=== PATIENT | female | born 2000 | race Caucasian/White ===

== ENCOUNTER 2024-10-17 21:06 | Emergency (ER) | payer MEDICAID ==
[~2024-10-17] VITALS: Ht 167.6 cm; Wt 127.3 kg
[2024-10-17] MEDS ORDERED: Ondansetron 4 MG/2 ML VIAL IV ONE (21:45)
[2024-10-17] MEDS ORDERED: NS 1,000 ML IV SCH (21:45)
[2024-10-17 22:00] LABS: HEMATOCRIT 47.8 % (37.0-47.0); HEMOGLOBIN 15.8 g/dL (12.5-16.0); MEAN CELL VOLUME 86 fl (78-100); MEAN CORPUSCULAR HEMOGLOBIN 28 pg (27-31); MEAN CORPUSCULAR HGB CONC 33 g/dL (33-37); MEAN PLATELET VOLUME 9.8 fl (7.4-10.4); PLATELET COUNT 223 K/mm3 (130-400); RED BLOOD COUNT 5.57 M/mm3 (4.10-5.30); RED CELL DISTRIBUTION WIDTH 12.3 % (11.5-14.5); WHITE BLOOD COUNT 6.5 K/mm3 (4.8-10.8)
[2024-10-17 22:09] LABS: ALBUMIN 4.5 g/dL (3.5-5.0)
[2024-10-17 22:11] LABS: CALCIUM 9.9 mg/dL (8.3-10.5)
[2024-10-17 22:12] LABS: TOTAL PROTEIN 9.2 g/dL (6.4-8.3)
[2024-10-17 22:14] LABS: TOTAL BILIRUBIN 0.5 mg/dL (0.2-1.2)
[2024-10-17 22:40] LABS: LYMPHOCYTE 37 % (20-51); MONOCYTE 7 % (3-10); NEUTROPHILS 54 % (42-75)
[2024-10-17] MEDS ORDERED: Ketorolac 30 MG/ML VIAL IV ONE (23:15)
[2024-10-17 23:23] LABS: URINE APPEARANCE SLIGHTLY CLOUDY (CLEAR); URINE COLOR YELLOW (YELLOW); URINE GLUCOSE NEGATIVE (NEGATIVE); URINE KETONE NEGATIVE (NEGATIVE); URINE PROTEIN(semi-quant) 2+ (NEGATIVE)
[2024-10-17 23:24] LABS: URINE BILIRUBIN NEGATIVE (NEGATIVE); URINE BLOOD 1+ (NEGATIVE); URINE LEUKOCYTE ESTERASE NEGATIVE (NEGATIVE); URINE NITRATE NEGATIVE (NEGATIVE)
[2024-10-17] MEDS ORDERED: diphenhydrAMINE 50 MG/ML 1 ML VIAL IV ONE (23:45)
[2024-10-18 01:27] VITALS: BP 112/49
== END 2024-10-18 01:28 | disposition home or self-care (01) ==
LOC: ED 21:06
PROVIDERS: Physician Assistant
DX: B34.9 Viral infection, unspecified (principal); R11.2 Nausea with vomiting, unspecified; R51.9 Headache, unspecified; R50.9 Fever, unspecified; R06.02 Shortness of breath; R00.0 Tachycardia, unspecified
CPT/HCPCS: J0780; J1200; J1885; J2405; J7030